=== PATIENT | female | born 1950 | race African-American/Black ===

== ENCOUNTER 2022-07-25 07:18 | Outpatient (CLI) | payer MEDICARE, BC ==
[2022-07-25] MEDS ORDERED: Iopamidol 300 61% 100 ML VIAL FS ONE (13:18)
== END 2022-07-25 07:19 | disposition home or self-care (01) ==
LOC: CSHCT 07:18
PROVIDERS: ATTEND Internal Medicine Nephrology
DX: N28.89 Other specified disorders of kidney and ureter (principal); N28.9 Disorder of kidney and ureter, unspecified; N28.1 Cyst of kidney, acquired; N26.1 Atrophy of kidney (terminal); K44.9 Diaphragmatic hernia without obstruction or gangrene
CPT/HCPCS: 74170; Q9967

== ENCOUNTER 2023-03-14 07:54 | Outpatient (CLI) | payer MEDICARE, BC | END 2023-03-14 07:55 | disposition home or self-care (01) | LOC: CSHCT 07:54 | PROVIDERS: ATTEND Urology | DX: N18.9 Chronic kidney disease, unspecified (principal); N28.89 Other specified disorders of kidney and ureter; N26.1 Atrophy of kidney (terminal); N28.1 Cyst of kidney, acquired | CPT/HCPCS: 74170 ==

== ENCOUNTER 2024-08-20 06:52 | Day surgery (SDC) | payer MEDICARE, BC ==
[2024-08-18 14:44] VITALS: BMI 31.9
[2024-08-20] MEDS ORDERED: Lidocaine 1% PF 5 ML VIAL ONE ×2 (08:02→09:27)
[2024-08-20] MEDS ORDERED: PROPOFOL 0 ML ONE (08:02)
[2024-08-20] MEDS ORDERED: Lidocaine 1% MPF 2 ML VIAL ONE ×2 (08:02→08:45)
[2024-08-20] MEDS ORDERED: fentaNYL 50 mcg/mL 1 mL Vial ONE (08:50)
[2024-08-20] MEDS ORDERED: Etomidate 40 MG (20 mL) VIAL ONE (08:55)
[2024-08-20] MEDS ORDERED: Mupirocin 2% Ointment 22 GM Tube ONE (08:59)
[2024-08-20] MEDS ORDERED: Methylene Blue 50 MG/10 ML AMPUL ONE (08:59)
[2024-08-20] MEDS ORDERED: Lidocaine 2% 6 ML (Jelly) SYR ONE (09:00)
[2024-08-20] MEDS ORDERED: Bupivacaine/Epinephrine 0.25% 30 ML VIAL ONE (09:00)
[2024-08-20] MEDS ORDERED: LevoFLOXacin D5W 500 mg (100 mL) BAG ONE (09:06)
[2024-08-20] MEDS ORDERED: Ondansetron PF 4 MG/2 ML Vial ONE (09:34)
[2024-08-20] MEDS ORDERED: Dexamethasone 4 mg/ml Vial ONE (09:34)
[2024-08-20] MEDS ORDERED: CEFAZOLIN 1 GM VIAL ONE (09:41)
== END 2024-08-20 11:45 | disposition home or self-care (01) ==
LOC: CSHSDC 06:52
PROVIDERS: ATTEND Surgery
PROC: 0D8R0ZZ Division of Anal Sphincter, Open Approach (ICD-10-PCS; principal; 2024-08-20)
DX: K60.2 Anal fissure, unspecified (principal)
CPT/HCPCS: 46200; J1100; J1642; J1956; J2405; J3010; J0690; J2704